=== PATIENT | male | born 1955 | race Two or more races ===

== ENCOUNTER 2019-03-01 00:33 | Inpatient (IN) | payer MEDICAID, OTHER ==
[~2019-03-01] VITALS: Ht 167.6 cm; Wt 65.8 kg
--- NOTE | 2019-03-01 00:45 | NUR ---
PT C/O CHEST PAIN TOOK 1 NITRO SL X2HR SUPPLY CHAIN GENERALIST, NO RELIEF. +SOB, -NAUSEA, -HEADACHE, -DIZZINESS. PT AAOX4. SKIN WARM AND INTACT. VSS. PT ON CONTINIOUS MONITORING AND PULSE OX.
[2019-03-01] MEDS ORDERED: NITROGLYCERIN PACKET 1 GM PACKET ONE (00:51)
[2019-03-01] MEDS ORDERED: NITROGLYCERIN 0.4 MG/TAB BOTTLE ONE (00:52)
[2019-03-01] MEDS ORDERED: ASPIRIN 81 MG TAB.CHEW ONE (00:52)
[2019-03-01 00:54] LABS: BASOPHILS # (AUTO) 0.1 /CMM (0.0-0.2); BASOPHILS % (AUTO) 0.6 % (0.0-2.0); EOSINOPHILS % (AUTO) 2.6 % (0.0-6.0); HEMATOCRIT 43 % (39-51); HEMOGLOBIN 14.4 g/dL (13.5-17.5); LYMPHOCYTES # (AUTO) 3.1 /CMM (0.8-4.8); LYMPHOCYTES % (AUTO) 30.9 % (20.0-44.0); MEAN CORPUSCULAR HGB CONC 34 g/dl (31.0-36.0); MEAN CORPUSCULAR VOLUME 91 fL (80-96); MONOCYTES # (AUTO) 0.6 /CMM (0.1-1.30); NEUTROPHILS % (AUTO) 59.9 % (43.0-81.0); PLATELET COUNT (AUTO) 216 /CMM (150-450); RED BLOOD CELL COUNT(AUTO) 4.71 MIL/uL (4.5-6.0)
[2019-03-01] MEDS ORDERED: NITROGLYCERIN PACKET 1 GM PACKET TD ONE (01:00)
[2019-03-01] MEDS ORDERED: NITROGLYCERIN 0.4 MG/TAB BOTTLE SL ONE ×2 (01:00→11:30)
[2019-03-01] MEDS ORDERED: ASPIRIN 81 MG TAB.CHEW PO ONE (01:00)
--- NOTE | 2019-03-01 01:00 | NUR ---
PT C/O CHEST PAIN NITRO GIVEN SUB 1TAB. VSS
--- NOTE | 2019-03-01 01:01 | NUR ---
X RAY AT BEDSIDE.
[2019-03-01 01:05] LABS: CALCIUM, SERUM 9.3 mg/dL (8.5-10.1); CARBON DIOXIDE 31 mmol/L (21-32); CHLORIDE 106 mmol/L (98-107); CREATININE 0.9 mg/dL (0.6-1.3); GLUCOSE 117 mg/dL (74-106); POTASSIUM 3.9 mmol/L (3.5-5.1); SODIUM SERUM 144 mmol/L (136-145); UREA NITROGEN, BLOOD 13 mg/dL (7-18)
--- NOTE | 2019-03-01 01:05 | NUR ---
C/O CHEST PAIN SECOND NITRO SUB GIVEN. VSS
--- NOTE | 2019-03-01 01:10 | NUR ---
C/O CHEST PAIN THIRD NITRO SUB GIVEN.
[2019-03-01 01:18] LABS: ALANINE AMINOTRANSFERASE 29 U/L (12-78); ALBUMIN 4.4 g/dL (3.4-5.0); ALKALINE PHOSPHATASE 123 U/L (46-116); ASPARTATE AMINOTRANSFERASE 19 U/L (15-37); B-TYPE NATRIURETIC PEPTIDE 103 PG/ML (0-125); BILIRUBIN,DIRECT 0.1 mg/dL (0.0-0.2); BILIRUBIN,TOTAL 0.2 mg/dL (0.2-1.0); TOTAL PROTEIN, SERUM 8.4 g/dL (6.4-8.2)
[2019-03-01 01:28] LABS: D-DIMER 0.67 mg/L(FEU (0.17-0.50)
[2019-03-01] MEDS ORDERED: HYDROMORPHONE 1 MG/1 ML DISP.SYRIN IV ONE (02:00)
[2019-03-01] MEDS ORDERED: ONDANSETRON HCL/PF - ER 4 MG/2 ML VIAL IV ONE (02:00)
[2019-03-01] MEDS ORDERED: ACETAMINOPHEN ES 500 MG TABLET PO ONE (02:00)
[2019-03-01] MEDS ORDERED: ONDANSETRON HCL/PF 4 MG/2 ML VIAL ONE (02:05)
[2019-03-01] MEDS ORDERED: ACETAMINOPHEN ES 500 MG TABLET ONE (02:06)
[2019-03-01] MEDS ORDERED: HYDROMORPHONE 1 MG/1 ML DISP.SYRIN ONE (02:06)
--- NOTE | 2019-03-01 02:07 | NUR ---
CALLED RN SUP FOR TELE BED
--- NOTE | 2019-03-01 02:15 | NUR ---
PT ASSIGNED TO [facility] 328-2
[2019-03-01] MEDS ORDERED: IOHEXOL-350 100 ML VIAL IV ONE ×2 (02:19→11:06)
[2019-03-01] MEDS ORDERED: IV NS 0.9% 250 ML IV ONE (02:20)
[2019-03-01] MEDS ORDERED: CT SWABBABLE VALVE TRANS SET 1 EA INFUS.SET MC ONE (02:20)
[2019-03-01] MEDS ORDERED: ACETAMINOPHEN 325 MG TABLET PO PRN (02:30)
[2019-03-01] MEDS ORDERED: ONDANSETRON HCL/PF 4 MG/2 ML VIAL IVP PRN (02:30)
[2019-03-01] MEDS ORDERED: HYDROCODONE/APAP 5/325MG 1 EACH TABLET PO PRN (02:30)
[2019-03-01] MEDS ORDERED: ZOLPIDEM TARTRATE 5 MG TABLET PO PRN (02:30)
[2019-03-01] MEDS ORDERED: Z GUARD REMEDY 2 OZ OINT TP PRN (02:30)
[2019-03-01] MEDS ORDERED: MAGNESIUM HYDROXIDE 30 ML UDC PO PRN (02:30)
--- NOTE | 2019-03-01 02:30 | NUR ---
PT BROUGHT TO CT BY RADIOLOGY
--- NOTE | 2019-03-01 02:46 | NUR ---
PT BROUGHT BACK FROM CT BY RADIOLOGY
--- NOTE | 2019-03-01 03:30 | NUR ---
TECH AT BEDSIDE FOR ECHO.
--- NOTE | 2019-03-01 03:50 | NUR ---
REPORT GIVEN TO MILADY PERAZA FOR ELSA.
--- NOTE | 2019-03-01 03:52 | NUR ---
CALLED [facility] FOR PENDING CTA RESULTS. CTA RESULTED, TO BE FAXED.
--- NOTE | 2019-03-01 03:56 | NUR ---
CALLED [facility] FOR PANEL ADMISSION, WAITING FOR COLORING MACHINE OPERATOR CATILAN CALL BACK.
--- NOTE | 2019-03-01 04:03 | NUR ---
IVAN OLIVA SPEAKING TO DR. MATHEW REGARDING PLAN OF CARE.
--- NOTE | 2019-03-01 04:06 | NUR ---
POTATO CHIP FRIER AT BEDSIDE FOR SECOND TROPONIN.
[2019-03-01 05:00] VITALS: BP 119/66
--- NOTE | 2019-03-01 05:01 | NUR ---
PT TRANSFERED TO 328-2 PER [facility]S PROTOCOL.
--- NOTE | 2019-03-01 05:11 | NUR ---
RN NOTES: PER PT, HE RECEIVED PNA VACCINE AND FLU VACCINE AT THE SAME DATE 12/25/18
--- NOTE | 2019-03-01 06:07 | NUR ---
RN NOTES NOC SHIFT ADMITTED PATIENT FROM ED DUE TO CHEST PAIN, DESCRIBED SHARP, PATIENT IS VISITING FROM [place], HAD CHEST PAIN X4 HRS AND WENT TO ED. ALERT AND ORIENTED X4, ANXIOUS, CHEST PAIN OF 10/10, RECEIVED NITROGLYCERIN PASTE, AND DILAUDID. CXR IS NEGATIVE, TROPONIN NEGATIVE X2, CTA OF THORAX/ABDOMEN NEGATIVE FOR PE, ANEURYSM, SHOWED 3CM MULTILOBULAR MASS TO RIGHT LOBE OF LIVER, ON TELE, SINUS FABRICIO, AMBULATORY, VOIDED SPONTANEOUSLY, PREF[address]RE[address] CLOTHES, REFUSED HOSPITAL GOWN, PHYSICIAN CONSULT WITH DR. STOUT AND AM LABS
[2019-03-01 06:52] LABS: BASOPHILS % (AUTO) 0.5 % (0.0-2.0); EOSINOPHILS % (AUTO) 3.6 % (0.0-6.0); HEMATOCRIT 36 % (39-51); HEMOGLOBIN 12.1 g/dL (13.5-17.5); LYMPHOCYTES # (AUTO) 2.5 /CMM (0.8-4.8); LYMPHOCYTES % (AUTO) 37.5 % (20.0-44.0); MEAN CORPUSCULAR HGB CONC 34 g/dl (31.0-36.0); MEAN CORPUSCULAR VOLUME 89 fL (80-96); MONOCYTES # (AUTO) 0.5 /CMM (0.1-1.30); NEUTROPHILS # (AUTO) 3.4 /CMM (1.8-8.9); NEUTROPHILS % (AUTO) 50.4 % (43.0-81.0); PLATELET COUNT (AUTO) 170 /CMM (150-450); RED BLOOD CELL COUNT(AUTO) 4.01 MIL/uL (4.5-6.0); WHITE BLOOD COUNT (AUTO) 6.6 K/uL (4.3-11.0)
--- NOTE | 2019-03-01 07:34 | NUR ---
ELECTRICIAN BUS OPENING NOTE RECEIVED PATIENT IN BED SLEEPING COMFORTABLY. PATIENT BREATHING IS EVEN AND UNLABORED. PATIENT IN NO ACUTE DISTRESS. NO SOB NOTED. PATIENT SAFETY PRECAUTIONS IN PLACE. PATIENT ON CARDIAC MONITORING SINUS BRADYCARDIA 55. PATIENT BED IS LOCKED AND IN LOWEST POSITION. CALL LIGHT WITHIN REACH. WILL CONTINUE TO MONITOR.
[2019-03-01 07:54] LABS: CALCIUM, SERUM 8.5 mg/dL (8.5-10.1); CREATININE 0.8 mg/dL (0.6-1.3); MAGNESIUM 1.9 mg/dL (1.8-2.4); PHOSPHORUS 4.6 mg/dL (2.5-4.9); POTASSIUM 3.7 mmol/L (3.5-5.1)
[2019-03-01 08:00] VITALS: BP 99/66
[2019-03-01] MEDS ORDERED: ASPIRIN 81 MG TAB.CHEW PO SCH (09:00)
--- NOTE | 2019-03-01 10:40 | NUR ---
MS RN NOTE SPOKE WITH RADIOLOGY. PER RADIOLOGY FOR CTA 20 G IS OKAY TO USE IF FLUSHING WELL. PATIENT 20 G IV FLUSHING WELL AND IS PATENT.
[2019-03-01] MEDS ORDERED: IV NS 0.9% 500 ML IV PRN (11:30)
[2019-03-01] MEDS ORDERED: METOPROLOL TARTRATE INJ 5 MG/5 ML AMPUL IVP ONE (11:30)
--- NOTE | 2019-03-01 11:50 | NUR ---
RN NOTE 1135: SBP 105, unable to given any BP meds. HR 63. 1150: Removed Nitro patch for BP 95/71. 1218: Done with procedure. Patient received 2mf of Verpamil. VSS.
[2019-03-01] MEDS ORDERED: VERAPAMIL HCL IV 5 MG/2 ML VIAL ONE (11:55)
[2019-03-01] MEDS ORDERED: VERAPAMIL HCL IV 5 MG/2 ML VIAL IV ONE (12:00)
[2019-03-01 16:00] VITALS: BP 127/72
--- NOTE | 2019-03-01 16:30 | NUR ---
MS RN NOTE CTA RESULTED NEGATIVE, PATIENT OKAY FOR DISCHARGE PER MATTHEW MILLER.
--- NOTE | 2019-03-01 17:15 | NUR ---
MS PHYSICIAN EXTENDER NOTE PATIENT MEDICALLY STABLE TO GO HOME. PATIENT IN NO ACUTE DISTRESS. NO SOB NOTED. PATIENT BREATHING IS EVEN AND UNLABORED. VITAL SIGNS WNL. DC INSTRUCTIONS PROVIDED, PATIENT VERBALIZED UNDERSTANDING. PATIENT IV REMOVED. ID BAND REMOVED. PATIENT REFUSED TO HAVE SKIN ASSESSMENT. PATIENT STATES " NO NO NO THATS OKAY I DONT NEED A SKIN ASSESSMENT, MY SKIN IS INTACT". EXPLAINED RISKS VS BENEFITS. PATIENT CONTINUED TO REFUSE. PATIENT SIGNED BELONGINGS LIST, AND HAS ALL BELONGINGS WITH HIM. PATIENT KEPT CLEAN DRY AND COMFORTABLE DURING MY SHIFT. PATIENT NEEDS AND CONCERNS WERE ADDRESSED. PATIENT IS AMBULATORY. PATIENT STATES NO PAIN AT THIS TIME. PATIENT EX AND OTHER FAMILY MEMBER PRESENT FOR WHEEL AND PINION INSPECTOR TO GO BACK HOME. PATIENT AMBULATORY TO CAR. MD IS AWARE OF DISCHARGE.
[2019-03-01] MEDS ORDERED: ATORVASTATIN 40 MG TABLET PO SCH (22:00)
== END 2019-03-01 17:15 | disposition home or self-care (01) | DRG 198 ==
LOC: ER 00:36 → TELE 02:39 → MED 08:46
PROVIDERS: ADMIT Nurse Practitioner Acute Care; ATTEND Nurse Practitioner Acute Care
DX: I25.10 Atherosclerotic heart disease of native coronary artery without angina pectoris (principal); J44.9 Chronic obstructive pulmonary disease, unspecified; F25.9 Schizoaffective disorder, unspecified; I25.2 Old myocardial infarction; E78.5 Hyperlipidemia, unspecified; F17.210 Nicotine dependence, cigarettes, uncomplicated; Z90.49 Acquired absence of other specified parts of digestive tract; F31.9 Bipolar disorder, unspecified; F41.9 Anxiety disorder, unspecified; D64.9 Anemia, unspecified; R16.0 Hepatomegaly, not elsewhere classified; Z71.6 Tobacco abuse counseling
CPT/HCPCS: 36415; 71045-TC; 75574; 80048-TC; 80061-TC; 80076-TC; 83735-TC; 83880; 84100-TC; 84484-TC; 85025-TC; 85378-TC; 85730-TC; 87081-TC; 93307-TC; G0378; J1170; J2405; J3490; J7040; J7050; Q9967